=== PATIENT | female | born 1965 | race Caucasian/White ===

== ENCOUNTER 2016-07-16 16:36 | Emergency (ER) | payer BC ==
[2016-07-16 17:40] VITALS: BP 103/64
[2016-07-16] MEDS ORDERED: LISINOPRIL10 MG PO (18:07)
== END 2016-07-16 17:40 | disposition home or self-care (01) ==
LOC: ED 16:36
DX: S00.03XA Contusion of scalp, initial encounter (principal); W22.8XXA Striking against or struck by other objects, initial encounter; Y93.53 Activity, golf; Y92.39 Other specified sports and athletic area as the place of occurrence of the external cause; I10 Essential (primary) hypertension